=== PATIENT | male | born 1940 | race Caucasian/White ===

== ENCOUNTER 2018-02-14 12:19 | Emergency (ER) | payer MEDICARE ==
[~2018-02-14] VITALS: Ht 7.6 cm; Wt 90.7 kg
[~2018-02-14 12:19] MED LIST: ASPIRIN325 MG PO; ATIVAN1 MG PO; DIPHENOXYLATE-ATROP PO; FOLIC ACID1 MG PO; HEARTBURN RELI200 MG PO; LAC PO; LEVAQUIN750 MG PO; LEXAPRO10 MG PO; LISINOPRIL40 MG PO; MULTI-VITAMINS1 TAB PO; NORCO1 TA2 PO; PROBIOTIC & ACI1 CAP PO; TRAMADOL HCL50 MG PO; TYL325 PO; VERAPAMIL240 M1 PO; VIS25 PO
[2018-02-14 12:35] VITALS: Ht 7.6 cm; Wt 90.7 kg
[2018-02-14 13:02] LABS: BASOPHIL % 0.8 % (0-2); PLATELET COUNT 377 x10^3mcL (130-400); RED CELL DISTRIBUTION WIDTH 13.9 % (11.5-14.5)
[2018-02-14 13:16] LABS: CARBON DIOXIDE 29.1 mmol/L (21-32); CHLORIDE SERUM 108 mmol/L (98-107); CREATININE SERUM 0.9 mg/dL (0.7-1.3); GLUCOSE SERUM 94 mg/dL (74-106); POTASSIUM SERUM 4.5 mmol/L (3.5-5.1); SODIUM SERUM 143 mmol/L (136-145)
[2018-02-14 13:22] LABS: ALKALINE PHOSPHATASE 76 U/L (46-116); ALT/SGPT 14 U/L (16-63); AST/SGOT 20 U/L (15-37); BILIRUBIN TOTAL 0.32 mg/dL (0.20-1.00); TOTAL PROTEIN, SERUM 6.2 g/dL (6.4-8.2)
[2018-02-14 13:23] LABS: ALBUMIN 3.2 g/dL (3.4-5.0)
[2018-02-14 14:01] LABS: UA SPECIFIC GRAVITY >=1.030 (1.005-1.035); microscopic required? YES; urine erythrocyte NEGATIVE (NEGATIVE)
[2018-02-14 14:11] LABS: AMPHETAMINE QUAL UR NONE DETECTED (NEG <=1000)
[2018-02-14 15:21] VITALS: BP 112/68
== END 2018-02-14 15:22 | disposition home or self-care (01) ==
LOC: ED 12:19
PROVIDERS: Emergency Medicine
DX: T67.5XXA Heat exhaustion, unspecified, initial encounter (principal); E46 Unspecified protein-calorie malnutrition; D64.9 Anemia, unspecified; I25.810 Atherosclerosis of coronary artery bypass graft(s) without angina pectoris; F41.9 Anxiety disorder, unspecified; I10 Essential (primary) hypertension; I45.10 Unspecified right bundle-branch block; Z88.5 Allergy status to narcotic agent
CPT/HCPCS: 82962; 83880; G0480; J7030; Q0092

== ENCOUNTER 2020-04-11 17:12 | Emergency (ER) | payer MEDICARE ==
[~2020-04-11] VITALS: Ht 185.4 cm; Wt 81.6 kg
[2020-04-11 17:29] VITALS: Ht 185.4 cm; Wt 81.6 kg
[2020-04-11 17:57] LABS: BASOPHIL % 1.2 % (0-2); PLATELET COUNT 349 x10^3mcL (130-400); RED CELL DISTRIBUTION WIDTH 14.3 % (11.5-14.5)
[2020-04-11 18:39] LABS: ALBUMIN 3.5 g/dL (3.4-5.0); ALKALINE PHOSPHATASE 96 U/L (46-116); ALT/SGPT 32 U/L (16-63); AST/SGOT 49 U/L (15-37); BILIRUBIN DIRECT 0.25 mg/dL (0.0-0.2); BILIRUBIN TOTAL 0.7 mg/dL (0.20-1.00); CALCIUM 8.8 mg/dL (8.5-10.1); CARBON DIOXIDE 22.8 mmol/L (21-32); CHLORIDE SERUM 94 mmol/L (98-107); CREATININE SERUM 0.7 mg/dL (0.7-1.3); GLUCOSE SERUM 92 mg/dL (74-106); LIPASE 43 IU/L (73-393); POTASSIUM SERUM 5.1 mmol/L (3.5-5.1); SODIUM SERUM 130 mmol/L (136-145); TOTAL PROTEIN, SERUM 6.6 g/dL (6.4-8.2)
[2020-04-11 19:51] VITALS: BP 135/78
== END 2020-04-11 19:51 | disposition home or self-care (01) ==
LOC: ED 17:12
PROVIDERS: Student in an Organized Health Care Education/Training Program
DX: S06.0X0A Concussion without loss of consciousness, initial encounter (principal); E87.1 Hypo-osmolality and hyponatremia; R10.9 Unspecified abdominal pain; R11.0 Nausea; Y93.89 Activity, other specified; W18.30XA Fall on same level, unspecified, initial encounter; Y92.89 Other specified places as the place of occurrence of the external cause; Y99.8 Other external cause status
CPT/HCPCS: 90715; J2405; J7030